=== PATIENT | female | born 1975 | race Hispanic/Latino ===

== ENCOUNTER 2016-07-06 14:16 | Outpatient (CLI) | payer OTHER ==
--- NOTE | 2016-07-06 15:50 | Ultrasound Report ---
TRANSABDOMINAL AND TRANSVAGINAL PELVIC ULTRASOUND: 07/06/16 14:16:00 CLINICAL: Excessive and frequent menstruation with an irregular cycle. FINDINGS: Transabdominal and transvaginal pelvic ultrasound demonstrated a small uterus measuring 8.2 x 3.8 x 5.5 cm. Heterogeneous anterior myometrium in the body and fundus suggestive of small fibroids. However, none measure greater than 1 cm..The endometrium is normal and measures 3.0 mm AP thickness. Normal ovaries. The right ovary measures 3.1 x 2.4 x 2.8cm. The left ovary measures 2.4 x 2.4 x 1.7cm. No adnexal mass. No free fluid. Normal urinary bladder. IMPRESSION: Suspect small fibroids but no uterine enlargement. Normal endometrium and normal ovaries.
== END 2016-07-06 14:17 | disposition home or self-care (01) ==
LOC: SPVWC 14:16
DX: N92.0 Excessive and frequent menstruation with regular cycle (principal)
CPT/HCPCS: 76830; 76856